=== PATIENT | male | born 1960 | race Caucasian/White ===

== ENCOUNTER 2022-01-10 20:23 | Emergency (ER) | payer OTHER ==
[~2022-01-10] VITALS: Ht 182.9 cm; Wt 117.9 kg
[2022-01-10 20:26] VITALS: BP_SYST 185
--- NOTE | 2022-01-10 20:35 | NUR ---
Pt received in no acute distress. Denies any CP. Connected to monitor and AFIB ruled out by MD. HR 82 @ this time. NSR at this time.
--- NOTE | 2022-01-10 20:38 | NUR ---
PT HERE C/O ARRYTHMIA SINCE AROUND 1300. PT STATED THAT IT SHOW ON HIS CELLPHONE JARRETT THAT HE HAD AFIB. PT DENIES CHEST PAIN, DENIES ANY PALPITATION AT THIS TIME. PMH;AFIB PT AAOX4, NO SOB NOTED AND NAD.
--- NOTE | 2022-01-10 20:41 | NUR ---
PT SEEN AND EXAMINE BY DR. SEARS
[2022-01-10] MEDS ORDERED: DILTIAZEM HCL 60 MG TABLET PO ONE (20:45)
[2022-01-10] MEDS ORDERED: dilTIAZem HCL IVP 5 MG/ML VIAL IVP ONE (20:45)
[2022-01-10 21:07] LABS: BASOPHILS % (AUTO) 0.5 % (0.0-2.0); EOSINOPHILS # (AUTO) 0.1 K/uL (0.0-0.4); EOSINOPHILS % (AUTO) 1.5 % (0.0-4.0); HEMATOCRIT 44.3 % (36-54); HEMOGLOBIN 15.8 g/dL (14.0-18.0); LYMPHOCYTES # (AUTO) 3.1 K/uL (1.0-5.5); LYMPHOCYTES % (AUTO) 34.3 % (20.5-51.5); MEAN CORPUSCULAR HEMOGLOBIN 33 pg (27-31); MEAN CORPUSCULAR HGB CONC 36 % (32-36); MEAN CORPUSCULAR VOLUME 92 fL (79.0-98.0); MONOCYTES # (AUTO) 0.8 K/uL (0.0-1.0); MONOCYTES % (AUTO) 9.1 % (1.7-9.3); NEUTROPHILS # (AUTO) 4.8 K/uL (1.8-7.7); NEUTROPHILS % (AUTO) 54.6 % (40.0-70.0); PLATELET COUNT (AUTO) 252 K/uL (130-430); RED BLOOD CELL COUNT(AUTO) 4.79 MIL/uL (4.2-6.2); RED CELL DISTRIBUTION WIDTH 12.9 % (9.0-15.0); WHITE BLOOD COUNT (AUTO) 8.9 K/uL (4.8-10.8)
[2022-01-10 21:09] LABS: ANION GAP 6 (5-15); CALCIUM 8.9 mg/dL (8.4-11.0); CHLORIDE 107 mmol/L (98-107); CREATININE 1.61 mg/dL (0.55-1.30); GLUCOSE 143 mg/dL (70-99); UREA NITROGEN, BLOOD 19 mg/dL (8-21)
[2022-01-10 21:15] LABS: GFR AFRICAN AMERICAN 56 mL/min (>90)
[2022-01-10 21:17] LABS: ALANINE AMINOTRANSFERASE 43 U/L (12-78); ALBUMIN 3.9 g/dL (3.4-4.8); ASPARTATE AMINOTRANSFERASE 28 U/L (10-37); TOTAL BILIRUBIN 0.5 mg/dL (0.0-1.0)
[2022-01-10] MEDS ORDERED: ATEN-41 PO (21:36)
--- NOTE | 2022-01-10 21:43 | NUR ---
Patient given written and verbal discharge instructions and verbalizes understanding. ER MD Wall discussed with patient the results and treatment provided. Patient in stable condition. ID arm band removed. Rx of Atenelol sent to preferred pharmacy. Patient educated on pain management and to follow up with PMD. Opportunity for questions provided and answered.
[2022-01-10 21:50] VITALS: BP_SYST 136
== END 2022-01-10 21:43 | disposition home or self-care (01) ==
LOC: SED 20:23
DX: I48.20 Chronic atrial fibrillation, unspecified (principal); R00.2 Palpitations; R42 Dizziness and giddiness; R06.02 Shortness of breath; Z79.899 Other long term (current) drug therapy
CPT/HCPCS: 36415; 71045; 80053; 83880; 84484; 85025; 93005; 99285